=== PATIENT | female | born 1985 | race Caucasian/White ===

== ENCOUNTER 2018-01-20 19:53 | Emergency (ER) | payer OTHER ==
[~2018-01-20] VITALS: Ht 167.6 cm; Wt 111.1 kg
[2018-01-20 20:15] VITALS: BP_SYST 129
[2018-01-20 20:56] LABS: BILIRUBIN,URINE NEGATIVE (NEGATIVE); BLOOD, URINE TRACE (NEGATIVE); CLARITY/URINE CLEAR (CLEAR); COLOR,URINE YELLOW (YELLOW); GLUCOSE,URINE NEGATIVE (NEGATIVE); KETONES,URINE NEGATIVE (NEGATIVE); LEUKOCYTE ESTERASE ,URINE NEGATIVE (NEGATIVE); NITRITE, URINE NEGATIVE (NEGATIVE); PROTEIN URINE NEGATIVE (NEGATIVE); UROBILINOGEN,URINE 0.2 (0.2-1.0)
[2018-01-20 21:00] LABS: BACTERIA,URINE FEW /HPF (None Seen); RBC,URINE 0-3 /HPF (0-3); WBC,URINE 0-3 /HPF (0-3)
[2018-01-20] MEDS ORDERED: KETOROLAC TROMETHAMINE 30 MG VIAL IM ONE (21:00)
[2018-01-20] MEDS ORDERED: CYCLOBENZAPRINE HCL 10 MG TABLET (FLEXERIL) PO ONE (21:15)
[2018-01-20 22:51] LABS: BASOPHILS # (AUTO) 0.1 K/uL (0.0-0.2); BASOPHILS % (AUTO) 0.9 % (0.0-2.0); EOSINOPHILS # (AUTO) 0.3 K/uL (0.0-0.4); EOSINOPHILS % (AUTO) 4.1 % (0.0-4.0); HEMATOCRIT 37.3 % (36-48); HEMOGLOBIN 12.3 g/dL (12.0-16.0); LYMPHOCYTES # (AUTO) 2.8 K/uL (1.0-5.5); LYMPHOCYTES % (AUTO) 46.6 % (20.5-51.5); MEAN CORPUSCULAR HEMOGLOBIN 29 pg (27-31); MEAN CORPUSCULAR HGB CONC 33 % (32-36); MEAN CORPUSCULAR VOLUME 87 fL (79.0-98.0); MONOCYTES # (AUTO) 0.5 K/uL (0.0-1.0); MONOCYTES % (AUTO) 7.3 % (1.7-9.3); NEUTROPHILS # (AUTO) 2.5 K/uL (1.8-7.7); NEUTROPHILS % (AUTO) 41.1 % (40.0-70.0); PLATELET COUNT (AUTO) 216 K/uL (130-430); RED BLOOD CELL COUNT(AUTO) 4.29 MIL/uL (4.2-6.2); RED CELL DISTRIBUTION WIDTH 13.5 % (9.0-15.0); WHITE BLOOD COUNT (AUTO) 6.2 K/uL (4.8-10.8)
[2018-01-20 22:56] LABS: CALCIUM 8.5 mg/dL (8.4-11.0); CREATININE 0.62 mg/dL (0.55-1.30); POTASSIUM 3.7 mmol/L (3.5-5.1)
[2018-01-20 23:01] LABS: ALBUMIN 3.5 g/dL (3.4-4.8); TOTAL BILIRUBIN 1.1 mg/dL (0.0-1.0)
[2018-01-21 00:05] VITALS: BP_SYST 125
== END 2018-01-21 00:05 | disposition home or self-care (01) ==
LOC: SED 19:53
DX: M54.5 Low back pain (principal); K59.00 Constipation, unspecified; Z88.2 Allergy status to sulfonamides; Z88.8 Allergy status to other drugs, medicaments and biological substances
CPT/HCPCS: 36415; 72100; 74176; 80053; 81000; 85025; 96372; 99285; J1885

== ENCOUNTER 2019-01-22 15:52 | Emergency (ER) | payer OTHER ==
[~2019-01-22] VITALS: Ht 170.2 cm; Wt 122.5 kg
--- NOTE | 2019-01-22 15:55 | NUR ---
Patient to ER bed 07 to gown for evaluation. Side rails up.
[2019-01-22 15:57] VITALS: BP_SYST 151
--- NOTE | 2019-01-22 15:57 | NUR ---
Pt brought by self, A&Ox4, pt presents to ER with bump/pain and bleeding on L labia area, afebrile, skin pink and warm, cap refill <3, VSS, respirations even and unlabored.
--- NOTE | 2019-01-22 16:03 | NUR ---
Dr Swann at bedside examining patient
--- NOTE | 2019-01-22 16:10 | NUR ---
Dr Swann at bedside for pelvic examinationa accompanied by myself
--- NOTE | 2019-01-22 16:12 | NUR ---
I&D Procedure done by Dr Shree landaverde using sterile technique. Lidocaine 1% used. Adaptic, 4x4 and pete to wound. amt of bleeding noted. Wound care discussed w/ patient. Pt tolerated procedure well.
[2019-01-22] MEDS ORDERED: KETOROLAC TROMETHAMINE 60 MG/2 ML VIAL IM ONE (16:45)
[2019-01-22] MEDS ORDERED: LIDOCAINE 1% 10 MG/ML, 20 ML MDV INJ ONE (16:45)
--- NOTE | 2019-01-22 17:07 | NUR ---
Patient given written and verbal discharge instructions and verbalizes understanding. ER MD discussed with patient the results and treatment provided. Patient in stable condition. ID arm band removed. Rx of Keflex, Tramadol, Doxycicline, Motrin given. Patient educated on pain management and to follow up with PMD. Pain Scale 3/10. Opportunity for questions provided and answered. Medication side effect fact sheet provided.
[2019-01-22 17:08] VITALS: BP_SYST 142
== END 2019-01-22 17:07 | disposition home or self-care (01) ==
LOC: SED 15:52
DX: N76.4 Abscess of vulva (principal); R03.0 Elevated blood-pressure reading, without diagnosis of hypertension; Z88.2 Allergy status to sulfonamides; Z88.8 Allergy status to other drugs, medicaments and biological substances
CPT/HCPCS: 56405; 81002; 81025; 96372; 99284; J1885; J2001; 99283

== ENCOUNTER 2019-11-15 09:26 | Emergency (ER) | payer OTHER ==
[~2019-11-15] VITALS: Ht 170.2 cm; Wt 124.7 kg
[2019-11-15 09:45] VITALS: BP_SYST 119
--- NOTE | 2019-11-15 09:45 | NUR ---
Patient arrived via POV, AAOx4, and ambulatory with steady gait. Patient c/c of bump to right under arm. Patient estimates walnut size, and painful. Pain is rated 7/10 with no relief. Patient shaves underarms, but there is no appearance opening, redness, warmth, or infection. Patient notes swelling. Patient states pain remains localized to the area. Will continue to follow up and monitor.
--- NOTE | 2019-11-15 09:45 | NUR ---
Patient triaged and placed in waiting room. VSS and patient appears in no acute distress at this time. Accompanied by self, awaiting available bed, and MD notified of need for MSE.
--- NOTE | 2019-11-15 09:55 | NUR ---
ER at bedside examining patient.
[2019-11-15 10:12] VITALS: BP_SYST 119
--- NOTE | 2019-11-15 10:12 | NUR ---
Patient given written and verbal discharge instructions and verbalizes understanding. ER MD discussed with patient the results and treatment provided. Patient in stable condition. ID arm band removed. Rx of Doxycycline given. Patient educated on pain management and to follow up with PMD. Pain Scale 7/10. Opportunity for questions provided and answered. Medication side effect fact sheet provided.
== END 2019-11-15 10:12 | disposition home or self-care (01) ==
LOC: SED 09:26
DX: L73.9 Follicular disorder, unspecified (principal); Z88.2 Allergy status to sulfonamides
CPT/HCPCS: 99283